=== PATIENT | female | born 1970 | race African-American/Black ===

== ENCOUNTER 2016-09-06 12:34 | Emergency (ER) | payer OTHER, MEDICAID ==
[~2016-09-06] VITALS: Ht 185.4 cm; Wt 93.6 kg
[~2016-09-06 12:34] MED LIST: ASPI81TA82 PO; ATOR80TA PO; LEVEMIR SQ; NOVOLOGSS SQ; SULF-154 PO; TRAM50 PO
[2016-09-06 12:42] VITALS: BP 131/85; PULSE 82; RESP 16; TEMP 97.8; O2SAT 99
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
[2016-09-06] MEDS ORDERED: LEXA10TA PO (12:59)
[2016-09-06] MEDS ORDERED: ATOR1TAB18 PO (12:59)
[2016-09-06] MEDS ORDERED: NOVOLOGP2 SQ (12:59)
[2016-09-06] MEDS ORDERED: INSU1INJ5 SQ (12:59)
[2016-09-06] MEDS ORDERED: ASPI81CH3 CHEW (12:59)
[2016-09-06] MEDS ORDERED: DAPA1TAB3 PO (12:59)
[2016-09-06] MEDS ORDERED: GABA300C5 PO (12:59)
[2016-09-06] MEDS ORDERED: METO50TA PO (12:59)
[2016-09-06] MEDS ORDERED: ORPHENADRINE INJ 60 MG/2 ML AMP IM ONE (13:00)
[2016-09-06] MEDS ORDERED: ROBA500T PO (13:01)
== END 2016-09-06 13:50 | disposition home or self-care (01) ==
LOC: PHEFT 12:57
DX: S16.1XXA Strain of muscle, fascia and tendon at neck level, initial encounter (principal); V89.2XXA Person injured in unspecified motor-vehicle accident, traffic, initial encounter
CPT/HCPCS: 96372; 99283; J2360

== ENCOUNTER 2016-09-09 09:56 | Emergency (ER) | payer MEDICAID ==
[~2016-09-09] VITALS: Ht 185.4 cm; Wt 95.0 kg
[~2016-09-09 09:56] MED LIST changes: +ASPI81CH3 CHEW; -ASPI81TA82 PO; +ATOR1TAB18 PO; -ATOR80TA PO; +DAPA1TAB3 PO; +GABA300C5 PO; +INSU1INJ5 SQ; -LEVEMIR SQ; +LEXA10TA PO; +METO50TA PO; +NOVOLOGP2 SQ; -NOVOLOGSS SQ; +ROBA500T PO; -SULF-154 PO; -TRAM50 PO
[2016-09-09 09:57] VITALS: BP 135/78; PULSE 79; RESP 18; TEMP 98; O2SAT 98
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
[2016-09-09] MEDS ORDERED: IBUPROFEN 800 MG TAB PO ONE (12:00)
--- NOTE | 2016-09-09 14:13 | RADRPT ---
EXAM DATE/TIME: 09/09/2016 12:38 [facility] COMPARISON: No previous studies available for comparison. INDICATIONS : Left leg pain and swelling. MEDICAL HISTORY : Hypercholesterolemia. Hypertension. Demyelination disorder. Neuropathy. Ectopic , tubal rupture. Fibromyalgia. Diabetes. SURGICAL HISTORY : Tonsillectomy. Tubal ligation. Hysterectomy. Partial dental plate. ENCOUNTER: Initial ACUITY: 2 day PAIN SCORE: 6/10 LOCATION: Left leg. TECHNIQUE: Venous ultrasound of the leg was performed from the inguinal ligament to the proximal calf. Real-nohemi e, color Doppler and spectral tracing, compression and augmentation techniques were used. FINDINGS: There is normal compressibility of the deep venous system from the inguinal region to the proximal ca lf. No echogenic clot is seen in the lumen of the common femoral, femoral, popliteal, and posterior tibial veins. There is a normal response of the venous system to proximal and distal augmentation an d respiration. CONCLUSION: No evidence of left lower extremity DVT. Kurtis Gillis MD on September 09, 2016 at 14:11 Board Certified Radiologist. This report was verified electronically.
[2016-09-09] MEDS ORDERED: IBUP800T23 PO (14:23)
== END 2016-09-09 14:58 | disposition home or self-care (01) ==
LOC: NEPB 09:56
DX: M79.662 Pain in left lower leg (principal); R60.0 Localized edema; I10 Essential (primary) hypertension; E11.9 Type 2 diabetes mellitus without complications; E78.00 Pure hypercholesterolemia, unspecified; Z79.4 Long term (current) use of insulin; Z79.82 Long term (current) use of aspirin; Z86.79 Personal history of other diseases of the circulatory system; Z87.39 Personal history of other diseases of the musculoskeletal system and connective tissue; Z86.69 Personal history of other diseases of the nervous system and sense organs
CPT/HCPCS: 93971; 99283; E0113

== ENCOUNTER 2017-06-19 21:34 | Emergency (ER) | payer MEDICAID ==
[~2017-06-19] VITALS: Ht 185.4 cm; Wt 75.0 kg
[~2017-06-19 21:34] MED LIST changes: +ASPI1CHW4 CHEW; -ASPI81CH3 CHEW; -ATOR1TAB18 PO; +ATOR80TA45 PO; +IBUP1TAB7 PO
[2017-06-19 21:35] VITALS: BP 136/70; PULSE 102; RESP 16; TEMP 98.5; O2SAT 100
[2017-06-19] MEDS ORDERED: CLIN300C5 PO (22:09)
[2017-06-19] MEDS ORDERED: PERI0.126 SWISH-SPIT (22:09)
[2017-06-19] MEDS ORDERED: TRAM50 PO (22:09)
[2017-06-19] MEDS ORDERED: IBUP1TAB7 PO (22:09)
--- NOTE | 2017-06-19 22:09 | PD ---
HPI Chief Complaint: Cold / Flu Symptoms Time Seen by Provider: 22:02 Travel History International Travel<30 days: No Contact w/Intl Traveler<30days: No Traveled to known affect area: No History of Present Illness HPI 47-year-old female presents emergency department for evaluation of tooth pain. Pain is generalized and involves multiple teeth. Patient states that she did break a tooth on the left axillary second molar some time ago and it is very painful now. She feels as though it radiates into her cheek. Pain is a 10 out of 10, constant, throbbing. Patient states she has also had cough and chest congestion over the last 24 hours. Denies any fever or chills. She has no other symptoms to report. PFSH Past Medical History Hx Anticoagulant Therapy: Yes (ASA) Autoimmune Disease: No Anxiety: No Depression: No Heart Rhythm Problems: No Cancer: No Cardiac Catheterization: No Cardiovascular Problems: Yes High Cholesterol: Yes Congestive Heart Failure: No Cerebrovascular Accident: Yes Diabetes: Yes Patient Takes Glucophage: No Diminished Hearing: No Endocrine: Yes Fibromyalgia: Yes Gastrointestinal Disorders: No Genitourinary: No Headaches: Yes Heparin Induced Thrombocytopen: No Hypertension: Yes Immune Disorder: No Implanted Vascular Access Dvce: No Musculoskeletal: Yes (NEUROPATHY) Neurologic: Yes (DEMYLENATION DISORDER) Psychiatric: No Reproductive: No Respiratory: No Immunizations Current: Yes Myocardial Infarction: No Tetanus Vaccination: < 5 Years Influenza Vaccination: No ?: Not LMP: 06/18/17 Ectopic : Yes (1998 TUBAL RUPTURE) Tubal Ligation: Yes Past Surgical History Coronary Artery Bypass Graft: No Hysterectomy: Yes Tonsillectomy: Yes Other Surgery: Yes (OVARIES AND TUBES REMOVED) Social History Alcohol Use: No Tobacco Use: No Substance Use: No Allergies-Medications (Allergen,Severity, Reaction): Coded Allergies: chlorpromazine (Unverified Allergy, Severe, HIVES, 06/19/17) duloxetine (Unverified Allergy, Severe, 06/19/17) gabapentin (Unverified Allergy, Severe, 06/19/17) hydrochlorothiazide (Unverified Allergy, Severe, TONGUE SWELLS, 06/19/17) penicillin G (Unverified Allergy, Severe, UNKNOWN, 06/19/17) pregabalin (Unverified Allergy, Severe, 06/19/17) promethazine (Unverified Allergy, Severe, HIVES, 06/19/17) triamterene (Unverified Allergy, Severe, TONGUE SWELLS, 06/19/17) Reported Meds & Prescriptions Reported Meds & Active Scripts Active Peridex Liq (Chlorhexidine Gluconate (Mouth) Liq) 0.12% Soln 15 Ml SWISH-SPIT BID Ultram (Tramadol HCl) 50 Mg Tab 50 Mg PO Q6H PRN Ibuprofen 800 Mg Tab 800 Mg PO Q8H PRN Clindamycin (Clindamycin HCl) 300 Mg Cap 300 Mg PO Q6H 10 Days Ibuprofen 800 Mg Tab 800 Mg PO Q6HR PRN Robaxin (Methocarbamol) 500 Mg Tab 500 Mg PO TID Reported Aspirin 81 Low Dose (Aspirin) 81 Mg Chew 81 Mg CHEW DAILY Metoprolol Tartrate 50 Mg Tab 50 Mg PO DAILY Farxiga (Dapagliflozin) 10 Mg Tab 10 Mg PO DAILY Atorvastatin (Atorvastatin Calcium) 80 Mg Tab 80 Mg PO HS Gabapentin 300 Mg Cap 300 Mg PO TID Lexapro (Escitalopram Oxalate) 10 Mg Tab 10 Mg PO DAILY Novolog Inj (Insulin Aspart) 1,000 Unit/10 Ml Vial 0 SQ DIRECTED Sliding Scale as directed. Levemir Flextouch Pen Inj (Insulin Detemir) 300 unit/3 ML Pen 40 Units SQ HS Review of Systems Except as stated in HPI: all other systems reviewed are Neg Physical Exam Narrative GENERAL: Well-nourished, well-developed female patient in no acute distress SKIN: Focused skin assessment warm/dry. HEAD: Normocephalic. Without Erythema or edema. Tenderness elicited palpation of the left maxillary sinus. EYES: No scleral icterus. No injection or drainage. DENTAL: Denies poor dentition with gingival erythema and edema.. No malocclusion. NECK: Supple, trachea midline. No JVD or lymphadenopathy. CARDIOVASCULAR: Regular rate and rhythm without murmurs, gallops, or rubs. RESPIRATORY: Breath sounds equal bilaterally. No accessory muscle use. GASTROINTESTINAL: Abdomen soft, non-tender, nondistended. MUSCULOSKELETAL: No cyanosis, or edema. BACK: Nontender without obvious deformity. No CVA tenderness. Data Data Last Documented VS Vital Signs Date Time Temp Pulse Resp B/P (MAP) Pulse Ox O2 Delivery O2 Flow Rate FiO2 06/19/17 22:09 06/19/17 21:35 98.5 102 16 100 Room Air Orders Orders Ketorolac Inj (Toradol Inj) (06/19/17 22:15) Ed Discharge Order (06/19/17 22:06) [facility] Medical Decision Making Medical Screen Exam Complete: Yes Emergency Medical Condition: Yes Medical Record Reviewed: Yes Differential Diagnosis Dental caries persistent abscess versus pulpitis versus gingivitis versus periodontal disease Narrative Course 47-year-old female presents to emergency department for evaluation of dental pain. Patient has generalized poor dentition. Gingival erythema and edema. The pain is radiating into her left maxilla. Patient is allergic to penicillin. She'll be started on clindamycin and treated for pain. I have encouraged follow-up with a dentist as soon as possible. She agrees return immediately with any acute worsening symptoms. Diagnosis Primary Impression: Dentalgia Additional Impressions: Dental caries Gingivitis Referrals: Dentist Primary Care Physician Patient Instructions: Dental Caries (ED), General Instructions Additional Instructions: Follow-up with a dentist as soon as possible Follow-up with a primary care provider Return immediately to the emergency department with any acute worsening of symptoms Med/Other Pt SpecificInfo: Prescription(s) given Scripts Chlorhexidine Gluconate (Mouth) Liq (Peridex Liq) 0.12% Soln 15 ML SWISH-SPIT BID, #473 ML 0 Refills Prov: Ya Mahoney 06/19/17 Tramadol (Ultram) 50 Mg Tab 50 MG PO Q6H Y for PAIN GREATER THAN 6, #12 TAB 0 Refills Prov: Ya Mahoney 06/19/17 Ibuprofen (Ibuprofen) 800 Mg Tab 800 MG PO Q8H Y for PAIN SCALE 1 TO 10, #30 TAB 0 Refills Prov: Ya Mahoney 06/19/17 Clindamycin (Clindamycin) 300 Mg Cap 300 MG PO Q6H for Infection for 10 Days, #40 CAP 0 Refills Prov: Ya Mahoney 06/19/17 Disposition: 01 DISCHARGE HOME Condition: Stable Ya Mahoney Jun 19, 2017 22:09
[2017-06-19] MEDS ORDERED: KETOROLAC TROMETHAMINE 60 MG/2 ML (IM) VIAL IM ONE (22:15)
== END 2017-06-19 22:20 | disposition home or self-care (01) ==
LOC: NEPD 21:34
DX: K02.9 Dental caries, unspecified (principal); K05.10 Chronic gingivitis, plaque induced; R05 Cough; R09.81 Nasal congestion; E11.40 Type 2 diabetes mellitus with diabetic neuropathy, unspecified; E78.00 Pure hypercholesterolemia, unspecified; M79.7 Fibromyalgia; I10 Essential (primary) hypertension; Z86.73 Personal history of transient ischemic attack (TIA), and cerebral infarction without residual deficits
CPT/HCPCS: 96372; 99284; J1885